=== PATIENT | male | born 2000 | race Two or more races ===

== ENCOUNTER 2020-02-28 16:17 | Emergency (ER) | payer BC, SELFPAY ==
[2020-02-28 16:20] VITALS: BP 142/81; PULSE 86; RESP 20; TEMP 37.1; O2SAT 100
--- NOTE | 2020-02-28 16:35 | ED.DENTAL ---
HPI - Dental/Oral General Chief complaint: Dental/Oral Stated complaint: facial swelling Time Seen by Provider: 02/28/20 16:25 History of Present Illness HPI Narrative: Patient presents with a left lower swollen mouth and toothache for several days now. He has had no fever but some chills. He does not have a dentist or Dr.. He is currently unemployed. He denies any medical problems, and has not been sick in the last couple weeks. In particular he denies cough fever and shortness of breath. MD Complaint: tooth pain Location: Tooth # (20) Onset (ago): day(s) Duration: worsening Severity: moderate Relieving factors: nothing Exacerbating factors: nothing Context: history of dental caries Associated symptoms: gum swelling Related Data Allergies Allergy/AdvReac Type Severity Reaction Status Date / Time No Known Allergies Allergy Verified 02/28/20 16:40 Review of Systems Review of Systems: Narrative: CONSTITUTIONAL: Denies fever, chills, or sweats. EYES: Denies visual changes, redness, or discharge. ENT: Denies rhinorrhea, congestion, sore throat, or otalgia. CARDIOVASCULAR: Denies chest pain, palpitations, or edema. RESPIRATORY: Denies cough or dyspnea. GASTROINTESTINAL: Denies abdominal pain, nausea, vomiting, or diarrhea. GENITOURINARY: Denies dysuria or hematuria. SKIN: Denies rash or itching. MUSCULOSKELETAL: Denies back pain, joint pain, or myalgia. NEUROLOGIC: Denies headache, numbness, or weakness. PSYCHIATRIC: Denies anxiety or depression. All systems reviewed & are unremarkable except as noted in HPI and below PMFSH Surgical History Surgical History (Updated 02/28/20 @ 16:36 by Keyonna Vargas MD) Hx of circumcision Social History Social History (Updated 02/28/20 @ 16:36 by Keyonna Vargas MD) Smoking status: Current every day smoker Alcohol intake: never Substance use: never Gender identity (if verbalized by the patient): Male Exam Narrative: Exam Narrative: GENERAL: Well-appearing, well-nourished, and in no acute distress. HEAD: Normocephalic, atraumatic. EYES: PERRLA and EOMI. ENT: Nares clear, no rhinorrhea or epistaxis. Mucous membranes moist.Gums are swollen around the lower left molars, and the left lower cheek is swollen. NECK: Supple.No swollen nodes. CHEST: Clear to auscultation. No respiratory distress. HEART: Regular rate and rhythm. No murmur heard. Normal peripheral pulses. ABDOMEN: Soft, nontender, nondistended, normal active bowel sounds. EXTREMITIES: Normal range of motion. No edema. SKIN: Warm, dry, no rash. NEURO: No focal deficits. Alert and oriented x3. PSYCH: Normal mood and affect. Const: General: alert Orientation/consciousness: patient oriented x3 HENMT: Teeth and gingiva: abnormal tooth and associated gingiva Course Vital Signs Vital signs: Vital Signs Temperature 98.8 F 02/28/20 16:20 Pulse Rate 86 02/28/20 16:20 Respiratory Rate 20 02/28/20 16:20 Blood Pressure 142/81 H 02/28/20 16:20 Pulse Oximetry 100 02/28/20 16:20 Temperature 98.8 F 02/28/20 16:20 Pulse Rate 86 02/28/20 16:20 Respiratory Rate 20 02/28/20 16:20 Blood Pressure 142/81 H 02/28/20 16:20 Pulse Oximetry 100 02/28/20 16:20 Discharge Plan Discharge Clinical Impression: Dental abscess, Smoking Patient Disposition: Home, Self-Care Condition: Stable Instructions: Antibiotic Form, Dental Abscess (ED) Additional Instructions: Get the referral sheet and find a dentist to see next week. Prescriptions: New penicillin V potassium 500 mg tablet 500 mg PO Q8H Qty: 30 RF: 0 ibuprofen 600 mg tablet 600 mg PO TID PRN (Reason: pain) Qty: 14 RF: 0 Follow-up/Referrals: Rose Fisher MD [Physician] - (call for an appointment with a regular doctor.) UNKNOWN,DOCTOR [Primary Care Provider] - Time of Disposition: 16:40
[2020-02-28] MEDS: PENICILLIN V POTASSIUM 250 MG TABLET 500 MG PO (16:42)
== END 2020-02-28 17:11 | disposition home or self-care (01) ==
PROVIDERS: Emergency Provider Emergency Medicine
DX: K04.7 Periapical abscess without sinus (principal); F17.200 Nicotine dependence, unspecified, uncomplicated
CPT/HCPCS: 99283; A9270

== ENCOUNTER 2020-11-28 20:09 | Emergency (ER) | payer BC, SELFPAY ==
[2020-11-28 20:19] VITALS: BP 138/68; PULSE 107; RESP 20; TEMP 39.3; O2SAT 97
--- NOTE | 2020-11-28 21:44 | ED.GENADULT ---
HPI - General Adult General Chief complaint: Unspecified Stated complaint: sore throat/chills Time Seen by Provider: 11/28/20 21:37 Source: patient History of Present Illness HPI narrative: Patient is a 20 y/o male complaining of bilateral sore throat for 2 days. He states that swallowing aggravates his pain. He also has fever and chills. He denies any cough. Related Data Allergies Allergy/AdvReac Type Severity Reaction Status Date / Time No Known Allergies Allergy Verified 02/28/20 16:40 Review of Systems Constitutional: Constitutional: Reports chills, Reports fever(s), Denies headache(s) and Denies weakness Eyes: Eyes: Denies blurry vision ENT: Denies headache(s), Denies neck pain and Reports sore throat Cardiovascular: Cardiovascular: Denies chest pain and Denies dyspnea Respiratory: Respiratory: Denies cough and Denies dyspnea Gastrointestinal: Gastrointestinal: Denies abdominal pain, Denies diarrhea, Denies nausea and Denies vomiting Genitourinary: Genitourinary: Denies hematuria and Denies dysuria Musculoskeletal: Musculoskeletal: Denies back pain and Denies neck pain Neurologic: Denies headache(s) and Denies weakness [facility] Surgical History Surgical History Hx of circumcision Social History Social History Smoking status: Current every day smoker Alcohol intake: never Substance use: never Gender identity (if verbalized by the patient): Male Exam Const: General: no acute distress and well developed Orientation/consciousness: oriented to person, oriented to place, oriented to time and patient oriented x3 HENMT: Head: normocephalic Ears: external ears normal General nose exam: Normal external nose present Throat: tonsils normal and posterior oropharynx abnormal erythema Eyes: General: appearance normal, both eyes and all related structures Conjunctivae: conjunctivae normal Neck: Neck: normal visual inspection and full ROM Chest: Chest palpation & inspection: normal inspection of the chest and no tenderness Resp: Effort & Inspection: normal respiratory effort Auscultation: clear to auscultation bilaterally Cardio: Rate: regular rate Rhythm: regular rhythm GI: GI Palp: No abdominal tenderness and Yes Soft to palpation Skin: General skin exam: normal color and turgor normal Neuro: General: oriented to person, oriented to place, oriented to time and patient oriented x3 Cognition (Neuro): normal cognition Extrem: General: normal to inspection, full ROM and no pedal edema Psych: Appearance: grossly normal Mental Status: mental status grossly normal Affect: normal affect Course Vital Signs Vital signs: Vital Signs Temperature 39.3 C H 11/28/20 20:19 Pulse Rate 107 H 11/28/20 20:19 Respiratory Rate 20 11/28/20 20:19 Blood Pressure 138/68 11/28/20 20:19 Pulse Oximetry 97 11/28/20 20:19 Temperature 39.3 C H 11/28/20 20:19 Pulse Rate 107 H 11/28/20 20:19 Respiratory Rate 20 11/28/20 20:19 Blood Pressure 138/68 11/28/20 20:19 Pulse Oximetry 97 11/28/20 20:19 Medical Decision Making Vital Signs Vital Signs: Vital Signs Temperature 39.3 C H 11/28/20 20:19 Pulse Rate 107 H 11/28/20 20:19 Respiratory Rate 20 11/28/20 20:19 Blood Pressure 138/68 11/28/20 20:19 Pulse Oximetry 97 11/28/20 20:19 Temperature 39.3 C H 11/28/20 20:19 Pulse Rate 107 H 11/28/20 20:19 Respiratory Rate 20 11/28/20 20:19 Blood Pressure 138/68 11/28/20 20:19 Pulse Oximetry 97 11/28/20 20:19 Lab Data Labs: Strep Screen Positive Group A Strep *(Reference Range: Negative)* Discharge Plan Discharge Clinical Impression: Strep pharyngitis, Person under investigation for COVID-19 Patient Disposition: Home, Self-Care Condition: Stable Instructions: Antibiotic Form, Stre
[2020-11-28] MEDS: ACETAMINOPHEN 325 MG TABLET 650 MG PO (21:54)
--- NOTE | 2020-11-28 21:55 | PC.NURSE ---
Patient dropped 325mg of Tylenol on ground. Another 325mg tablet pulled from Pyxis. Charge nurse Terri witnessed removal is disposal of Tylenol.
[2020-11-28 22:24] VITALS: TEMP 37.7
[2020-11-28 22:37] VITALS: BP 138/61; PULSE 91; RESP 14; TEMP 37.7; O2SAT 97
[2020-11-29 18:38] LABS: SARS-CoV-2 RNA PCR Negative
== END 2020-11-28 22:44 | disposition home or self-care (01) ==
PROVIDERS: Emergency Medicine Emergency Medical Services; Emergency Provider Emergency Medicine
DX: J02.0 Streptococcal pharyngitis (principal); Z20.822 Contact with and (suspected) exposure to COVID-19; F17.200 Nicotine dependence, unspecified, uncomplicated
CPT/HCPCS: 87880; 99283; A9270; C9803; U0003; U0005